=== PATIENT | female | born 2000 | race Caucasian/White ===

== ENCOUNTER 2024-09-01 22:58 | Emergency (ER) | payer OTHER, BC ==
[2024-09-01] MEDS: Ketorolac 30 MG/ML SDV IM ONE (23:48)
== END 2024-09-02 | disposition home or self-care (01) ==
LOC: JD.ED 22:58
DX: M54.2 Cervicalgia (principal); M25.512 Pain in left shoulder; M79.9 Soft tissue disorder, unspecified; Z88.0 Allergy status to penicillin; V43.12XA Car passenger injured in collision with other type car in nontraffic accident, initial encounter
CPT/HCPCS: 99283